=== PATIENT | female | born 1995 | race African-American/Black ===

== ENCOUNTER 2019-04-25 16:46 | Emergency (ER) | payer OTHER, MEDICAID ==
[~2019-04-25] VITALS: Ht 165.1 cm; Wt 63.0 kg
[2019-04-25] MEDS ORDERED: IBUPROFEN 600MG TABLET PO ONE (21:45)
[2019-04-25] MEDS ORDERED: HYDROCODONE/ACETAMINOPHEN 5/325MG TABLET PO PRN (22:15)
[2019-04-25] MEDS ORDERED: LIDOCAINE 1%/EPI 1:100,000 10 ML VIAL IJ ONE (22:15)
[2019-04-25] MEDS: LIDOCAINE HCL/EPINEPHRINE 1%-EPI 1:100,000 20 ML VIAL INFIL NR ×2 (22:30→22:37)
[2019-04-25] MEDS ORDERED: LIDOCAINE HCL 2%/EPINEPHRINE/PF 10 ML VIAL INFIL ONE (23:45)
[2019-04-26 01:28] VITALS: BP 123/71
== END 2019-04-26 01:33 | disposition home or self-care (01) ==
LOC: ER 16:46
DX: S63.115A Dislocation of metacarpophalangeal joint of left thumb, initial encounter (principal); Y08.89XA Assault by other specified means, initial encounter; Y93.89 Activity, other specified; Y92.89 Other specified places as the place of occurrence of the external cause; Y99.8 Other external cause status; J45.909 Unspecified asthma, uncomplicated; F12.10 Cannabis abuse, uncomplicated
CPT/HCPCS: 26770; 73130; 99284; J3490

== ENCOUNTER 2019-07-06 21:12 | Emergency (ER) | payer OTHER, MEDICAID ==
[~2019-07-06] VITALS: Ht 165.1 cm; Wt 64.0 kg
[2019-07-06] MEDS ORDERED: MORPHINE SULFATE 4 MG/ML CPJ (NOT FOR IM USE) IV STA (21:53)
[2019-07-06] MEDS ORDERED: ONDANSETRON HCL 4MG/2ML INJ IV STA (21:53)
[2019-07-06] MEDS ORDERED: SODIUM CHLORIDE 0.9% 1,000 ML IV ONE (21:53)
[2019-07-06 22:39] LABS: HCG SCREEN NEGATIVE
[2019-07-07 00:15] VITALS: BP 127/81
== END 2019-07-07 00:16 | disposition home or self-care (01) ==
LOC: ER 21:12
DX: S62.101A Fracture of unspecified carpal bone, right wrist, initial encounter for closed fracture (principal); J45.909 Unspecified asthma, uncomplicated; W18.30XA Fall on same level, unspecified, initial encounter; Y93.51 Activity, roller skating (inline) and skateboarding; Y92.89 Other specified places as the place of occurrence of the external cause; Y99.8 Other external cause status
CPT/HCPCS: 29125; 73110; 84703; 96374; 96375; 99284; J2270; J2405; J7030

== ENCOUNTER 2019-11-25 16:02 | Emergency (ER) | payer OTHER, MEDICAID ==
[~2019-11-25] VITALS: Ht 165.1 cm; Wt 63.0 kg
[2019-11-25] MEDS ORDERED: LIDOCAINE HCL/PF 1% 10 MG/ML 5ML VIAL IJ ONE (17:45)
[2019-11-25 19:19] VITALS: BP 128/98
== END 2019-11-25 19:22 | disposition home or self-care (01) ==
LOC: ER 16:02
DX: S61.011A Laceration without foreign body of right thumb without damage to nail, initial encounter (principal); X99.1XXA Assault by knife, initial encounter; Y93.89 Activity, other specified; Y92.89 Other specified places as the place of occurrence of the external cause
CPT/HCPCS: 12002; 99282; J3490

== ENCOUNTER 2020-10-21 00:56 | Emergency (ER) | payer OTHER, MEDICAID ==
[~2020-10-21] VITALS: Ht 167.6 cm; Wt 64.0 kg
[2020-10-21] MEDS ORDERED: IBUPROFEN 600MG TABLET PO ONE (01:30)
[2020-10-21] MEDS ORDERED: ONDANSETRON HCL 4MG/2ML INJ IV SCH (04:30)
[2020-10-21] MEDS ORDERED: MORPHINE SULFATE 4 MG/ML CPJ (NOT FOR IM USE) IV SCH (04:30)
[2020-10-21] MEDS ORDERED: PROPOFOL 200MG/20ML VIAL IV SCH (04:30)
[2020-10-21] MEDS ORDERED: SODIUM CHLORIDE 0.9% 1,000 ML IV SCH (04:30)
[2020-10-21] MEDS ORDERED: KETAMINE HCL 50 MG/ML 10ML IV SCH (04:30)
[2020-10-21] MEDS ORDERED: HYDR-4346 MT (05:16)
[2020-10-21] MEDS ORDERED: IBUP-2029 MT (05:16)
[2020-10-21 05:33] VITALS: BP 128/82
== END 2020-10-21 05:37 | disposition home or self-care (01) ==
LOC: ER 00:56
DX: S53.125A Posterior dislocation of left ulnohumeral joint, initial encounter (principal); J45.909 Unspecified asthma, uncomplicated; Y08.89XA Assault by other specified means, initial encounter; Y93.89 Activity, other specified; Y92.9 Unspecified place or not applicable
CPT/HCPCS: 24600; 73070; 73090; 96361; 96374; 99152; 99285

== ENCOUNTER 2024-07-28 12:02 | Emergency (ER) | payer OTHER, MEDICAID ==
[~2024-07-28] VITALS: Ht 167.6 cm; Wt 68.0 kg
[~2024-07-28 12:02] MED LIST: HYDR-4346 MT; IBUP-2029 MT
[2024-07-28 12:50] VITALS: BP 147/73; PULSE 95; RESP 15; TEMP 36.7; O2SAT 98; O2SAT 99
[2024-07-28] MEDS ORDERED: LIDOCAINE HCL 1% 20ML VIAL INFIL ONE (15:15)
[2024-07-28] MEDS ORDERED: IBUP-2029 MT (15:36)
[2024-07-28] MEDS ORDERED: CEPH500C2 MT (15:36)
== END 2024-07-28 16:09 | disposition home or self-care (01) ==
LOC: ER 12:02
DX: S01.412A Laceration without foreign body of left cheek and temporomandibular area, initial encounter (principal); J45.909 Unspecified asthma, uncomplicated; Z79.899 Other long term (current) drug therapy; V89.2XXA Person injured in unspecified motor-vehicle accident, traffic, initial encounter; Y93.89 Activity, other specified; Y92.89 Other specified places as the place of occurrence of the external cause; Y99.8 Other external cause status
CPT/HCPCS: 99283; 12011; J3490

== ENCOUNTER 2024-08-07 12:02 | Emergency (ER) | payer MEDICAID ==
[~2024-08-07] VITALS: Ht 167.6 cm; Wt 71.0 kg
[~2024-08-07 12:02] MED LIST changes: +CEPH500C2 MT
[2024-08-07 12:13] VITALS: O2SAT 99
[2024-08-07 12:22] VITALS: BP 111/69; PULSE 72; RESP 16; TEMP 36.7; O2SAT 100
[2024-08-07] MEDS ORDERED: BO1 TP (13:11)
== END 2024-08-07 14:57 | disposition home or self-care (01) ==
LOC: ER 12:02
DX: S01.81XD Laceration without foreign body of other part of head, subsequent encounter (principal); J45.909 Unspecified asthma, uncomplicated; Z79.899 Other long term (current) drug therapy; X58.XXXD Exposure to other specified factors, subsequent encounter
CPT/HCPCS: 99282